=== PATIENT | female | born 1995 | race Caucasian/White ===

== ENCOUNTER 2023-11-19 10:22 | Outpatient (AMB) | payer OTHER, SELFPAY ==
[2023-11-19 10:29] VITALS: BP 170/100; PULSE 90; TEMP 36.5; O2SAT 97; BMI 49.9
--- NOTE | 2023-11-19 10:29 | MHC.OFFWIV ---
Intake Vital Signs 11/19/23 10:29 Height 5 ft 4 in Weight 291 lb BMI 49.9 BP 170/100 H Blood Pressure Location Lt brachial Position Sitting Pulse 90 Pulse Source Pulse Oximeter Temp 97.7 F Temp Source Temporal Artery Scan Pulse Oximetry (%) 97 Oxygen Delivery Method Room Air Intake Visit Reasons: EP Cough/RT ear pain [phone] Intake Note: pt is here today for cough rt ear pain started October Patient Tobacco Use Status: Never used Tobacco Allergies No Known Allergies Allergy (Verified 11/19/23 10:30) Do you need a note to return to daycare/school/sports/work: No HPI EP Cough/RT ear pain [phone] HPI Details This is a 28-year-old female patient who presents today with a one-week history of right ear pain, and about 3-4 weeks of a cough. She states that about 1 month ago, she developed a ?head cold , and although most of the symptoms have resolved from this, she has a persistent productive cough, and has started to develop right ear pain. She did have RSV back in August 2023. She has been trying some [id number] cough and cold medicine without relief. Denies any fever or chills. Denies any shortness of breath. [facility] Social History Patient Tobacco Use Status: Never used Tobacco Review of Systems Const All systems reviewed & are unremarkable except as noted in HPI and below Physical Exam Vital Signs: Last Vital Signs Temp 97.7 F 11/19/23 10:29 Pulse 90 11/19/23 10:29 BP 170/100 H 11/19/23 10:29 Pulse Ox 97 11/19/23 10:29 Oxygen Delivery Method Room Air 11/19/23 10:29 BMI result Body Mass Index 49.9 Const General: cooperative and no acute distress HEENT Head: Yes normal to inspection Ears: hearing grossly normal bilaterally, external ears normal, TM normal on the left and TM abnormal (right TM dull, erythematous) General nose exam: Normal external nose present Mouth: Normal oral and palatal mucosa present Throat: Yes posterior oropharynx normal Neck Neck: Yes no lymphadenopathy Resp Effort & Inspection: normal respiratory effort Auscultation: clear to auscultation bilaterally Cardio Palpation: normal PMI Rate: regular rate Rhythm: regular rhythm Skin General skin exam: no rashes or lesions noted Extrem General: Yes capillary refill normal and Yes no clubbing, cyanosis or edema Psych Appearance: grossly normal Mental Status: mental status grossly normal Speech and movement: Normal speech and movement present Assessment & Plan Assessment & Plan (1) Right otitis media: Code(s): H66.91 - Otitis media, unspecified, right ear Qualifiers: Otitis media type: other nonsuppurative Chronicity: acute Recurrence: non-recurrent Qualified Code(s): H65.191 - Other acute nonsuppurative otitis media, right ear Plan: Will start on augmentin - patient requests liquid form. Also started on Benzonatate for her persistent cough. Reviewed indications, use, possible side effects with these medications. If she does not improve with treatment, she can return to the clinic for further evaluation. She verbalizes understanding and agrees to plan. Medications: New amoxicillin-pot clavulanate 400-57 mg/5 mL 10 mL PO Q12H 7 days 140 mL 0RF H66.91 - Otitis media, unspecified, right ear benzonatate 100 mg PO BID 7 days PRN 14 caps 0RF cough R05.9 - Cough, unspecified Coding Level of Care Code Est Pt Level 3 (27065) Diagnoses Other non-recurrent acute nonsuppurative otitis media of right ear H65.191 Otitis media type: other nonsuppurative Chronicity: acute Recurrence: non-recurrent
== END 2023-11-19 11:14 | disposition home or self-care (01) ==
PROVIDERS: Visit Provider Nurse Practitioner Family
DX: H65.191 Other acute nonsuppurative otitis media, right ear (principal)
CPT/HCPCS: 99213

== ENCOUNTER 2023-12-02 09:40 | Outpatient (AMB) | payer OTHER, SELFPAY ==
[2023-12-02 10:37] VITALS: BP 150/100; PULSE 95; TEMP 36.4; O2SAT 97; BMI 48.9
--- NOTE | 2023-12-02 10:37 | AM.OFFWIN_ITS ---
Intake Vital Signs 12/02/23 10:37 Height 5 ft 4 in Weight 285 lb BMI 48.9 BP 150/100 H Blood Pressure Location Lt brachial Position Sitting Pulse 95 Pulse Source Pulse Oximeter Temp 97.6 F Temp Source Temporal Artery Scan Pulse Oximetry (%) 97 Oxygen Delivery Method Room Air Intake Visit Reasons: EP RT Ear infection Intake Note: pt is here today for rt ear infection started 11/19 Patient Tobacco Use Status: Never used Tobacco Allergies No Known Allergies Allergy (Verified 12/02/23 10:38) Do you need a note to return to daycare/school/sports/work: No HPI EP RT Ear infection HPI Details This is a 28-year-old female patient who presents today with ongoing right ear pain. She was seen here on 11/19 and started on Augmentin for right otitis media. She states that although she did begin to feel significant improvement, the pain and pressure in her right ear has been recurring over the last several days. She denies any fever or chills or ongoing respiratory symptoms. [facility] Social History Patient Tobacco Use Status: Never used Tobacco Review of Systems Const All systems reviewed & are unremarkable except as noted in HPI and below Physical Exam Vital Signs: Last Vital Signs Temp 97.6 F 12/02/23 10:37 Pulse 95 12/02/23 10:37 BP 150/100 H 12/02/23 10:37 Pulse Ox 97 12/02/23 10:37 Oxygen Delivery Method Room Air 12/02/23 10:37 BMI result Body Mass Index 48.9 Const General: cooperative and no acute distress HEENT Head: Yes normal to inspection Ears: hearing grossly normal bilaterally, external ears normal, TM normal on the left and TM abnormal (right TM dull, erythematous) General nose exam: Normal external nose present Mouth: Normal oral and palatal mucosa present Throat: Yes posterior oropharynx normal Neck Neck: Yes no lymphadenopathy Resp Effort & Inspection: normal respiratory effort Auscultation: clear to auscultation bilaterally Cardio Palpation: normal PMI Rate: regular rate Rhythm: regular rhythm Skin General skin exam: no rashes or lesions noted Extrem General: Yes capillary refill normal and Yes no clubbing, cyanosis or edema Psych Appearance: grossly normal Mental Status: mental status grossly normal Speech and movement: Normal speech and movement present Assessment & Plan Assessment & Plan (1) Right otitis media: Code(s): H66.91 - Otitis media, unspecified, right ear Qualifiers: Otitis media type: suppurative Chronicity: acute Recurrence: recurrent Spontaneous tympanic membrane rupture: without spontaneous rupture Qualified Code(s): H66.004 - Acute suppurative otitis media without spontaneous rupture of ear drum, recurrent, right ear Plan: Recurrent right otitis media. Will try cephalosporin at this time. Patient requires liquid medication, so liquid cefdinir was sent. Reviewed indications, use, possible side effects of this. Advised to return to the clinic or see PCP if she does not improve with treatment. May take Tylenol/Motrin for any symptomatic treatment. Is going to discuss possible ENT referral with her PCP. Medications: New cefdinir 300 mg (6 mL) PO BID 120 mL 0RF 10 days H66.004 - Acute suppurative otitis media without spontaneous rupture of ear drum, recurrent, right ear Coding Level of Care Code Est Pt Level 3 (73040) Diagnoses Recurrent acute suppurative otitis media of right ear without spontaneous rupture of tympanic membrane H66.004 Otitis media type: suppurative Chronicity: acute Recurrence: recurrent Spontaneous tympanic membrane rupture: without spontaneous rupture
== END 2023-12-02 11:21 | disposition home or self-care (01) ==
PROVIDERS: Visit Provider Nurse Practitioner Family
DX: H66.004 Acute suppurative otitis media without spontaneous rupture of ear drum, recurrent, right ear (principal)
CPT/HCPCS: 99213

== ENCOUNTER 2024-08-09 09:32 | Outpatient (AMB) | payer OTHER, SELFPAY ==
--- NOTE | 2024-08-09 09:42 | AM.OFFWIN_ITS ---
Intake Vital Signs 08/09/24 09:43 Height 5 ft 4 in Weight 285 lb BMI 48.9 BP 150/100 H Blood Pressure Location Rt brachial Position Sitting Pulse 82 Pulse Source Pulse Oximeter Temp 99.1 F Temp Source Oral Pulse Oximetry (%) 98 Intake Visit Reasons: EP ? pink eye on LT eye Intake Note: pt is here for pink eye on left eye Patient Tobacco Use Status: Never used Tobacco Allergies No Known Allergies Allergy (Verified 08/09/24 09:44) Do you need a note to return to daycare/school/sports/work: No HPI HPI Comments History of Present Illness Details Patient is a 29-year-old female complaining of 2 days of itchiness and watery anus with a little bit of crusting on her left eye only. She denies any visual changes or blurry vision. She states last time she had pink eye it was in both eyes. She denies any seasonal allergies. Patient does not wear contacts, she wears glasses. [facility] Social History Patient Tobacco Use Status: Never used Tobacco Review of Systems Const All systems reviewed & are unremarkable except as noted in HPI and below Physical Exam Vital Signs: Last Vital Signs Temp 99.1 F 08/09/24 09:43 Pulse 82 08/09/24 09:43 BP 150/100 H 08/09/24 09:43 Pulse Ox 98 08/09/24 09:43 BMI result Body Mass Index 48.9 Const General: cooperative, healthy appearing, comfortable, no acute distress and well developed Orientation/consciousness: patient oriented x3 Limitations: no limitations HEENT Head: Yes normal to inspection Eyes Alignment and Position: alignment normal and position normal Periorbital: periorbital findings normal Eyelids: Yes eyelids normal Conjunctivae: conjunctival abnormal left conjunctival injection and discharge Pupils: Equal, round and reactive pupils present EOM: EOMs intact bilaterally Neck Neck: Yes normal visual inspection and Yes supple Neuro General: patient oriented x3 Cranial nerves: Yes Equal, round and reactive pupils present Assessment & Plan Assessment & Plan (1) Acute bacterial conjunctivitis of left eye: Code(s): H10.32 - Unspecified acute conjunctivitis, left eye Plan: Sent erythromycin ointment, it is unclear if this is allergic or bacterial so I did ask her to buy Pataday drops if they erythromycin ointment did not improve her symptoms in the next 3-4 days. Plan See above Medications: New erythromycin Apply to left eye 4 times a day while awake 0.5 inches ophthalmic (eye) QID 3.5 grams 0RF Coding Level of Care Code New Pt Level 3 (95965) Diagnoses Acute bacterial conjunctivitis of left eye H10.32
[2024-08-09 09:43] VITALS: BP 150/100; PULSE 82; TEMP 37.3; O2SAT 98; BMI 48.9
== END 2024-08-09 11:47 | disposition home or self-care (01) ==
PROVIDERS: Visit Provider Physician Assistant
DX: H10.32 Unspecified acute conjunctivitis, left eye (principal)

== ENCOUNTER → 2024-08-09 09:32 | Outpatient (BNVA) | payer OTHER, SELFPAY | PROVIDERS: Visit Provider Physician Assistant | DX: H10.32 Unspecified acute conjunctivitis, left eye (principal) | CPT/HCPCS: 99202 ==